=== PATIENT | female | born 1955 | race Two or more races ===

== ENCOUNTER 2018-12-26 10:40 | Emergency (ER) | payer SELFPAY ==
[~2018-12-26] VITALS: Ht 162.6 cm; Wt 79.5 kg
[2018-12-26] MEDS: HYDROCODONE/ACETAMINOPHEN 5/325MG TABLET PO STA (11:43)
[2018-12-26] MEDS ORDERED: LIDOCAINE HCL 2% 5ML SYRINGE IV ONE (12:15)
[2018-12-26] MEDS ORDERED: LIDOCAINE HCL/PF 1% 10 MG/ML 5ML VIAL IJ ONE (12:15)
[2018-12-26] MEDS: FENTANYL CITRATE/PF 50MCG/ML 2ML VIAL IV ONE (12:57)
[2018-12-26] MEDS: IBUPROFEN 600MG TABLET PO STA (15:02)
[2018-12-26 15:15] VITALS: BP 139/75
== END 2018-12-26 15:48 | disposition home or self-care (01) ==
LOC: ER 10:40
DX: S52.512A Displaced fracture of left radial styloid process, initial encounter for closed fracture (principal); W01.0XXA Fall on same level from slipping, tripping and stumbling without subsequent striking against object, initial encounter; Y93.89 Activity, other specified; Y92.89 Other specified places as the place of occurrence of the external cause; Y99.8 Other external cause status
CPT/HCPCS: 25605; 73090; 73100; 73110; 99284; J3010; J3490; A4565

== ENCOUNTER 2019-01-25 09:22 | Emergency (ER) | payer OTHER ==
[~2019-01-25] VITALS: Ht 162.6 cm; Wt 76.0 kg
[2019-01-25] MEDS ORDERED: KETOROLAC 60MG/2ML VIAL IM ONE (11:45)
[2019-01-25] MEDS ORDERED: CYCLOBENZAPRINE 10MG TABLET PO ONE (11:45)
[2019-01-25 12:35] VITALS: BP 172/99
== END 2019-01-25 12:28 | disposition home or self-care (01) ==
LOC: ER 09:22
DX: M54.5 Low back pain (principal)
CPT/HCPCS: 96372; 99283; J1885